=== PATIENT | female | born 1970 | race Caucasian/White ===

== ENCOUNTER 2019-03-08 16:28 | Emergency (ER) | payer BC ==
[2019-03-08 16:50] VITALS: BP 148/91
--- NOTE | 2019-03-08 17:40 | UC ---
Complaint Female HPI - HPI Summary HPI Summary: 48-year-old female presents with complaints of urinary frequency, urgency, nocturia for the past 3 days. States about a week ago she did have vaginal yeast infection symptoms and used Monistat with improvement in her symptoms. She also reports a red, scaly, itchy rash to her bilateral axilla and the need to her bilateral breasts that started 4 days ago. States the rash initially began in the right axilla, spread to the right, and then below her breast. Denies fever, chills, abdominal pain, back or flank pain, nausea, vomiting, dysuria, or hematuria. - History Of Current Complaint Chief Complaint: UCGU Stated Complaint: RASH,URINARY COMPLAINT Time Seen by Provider: 03/08/19 17:30 Hx Obtained From: Patient Pain Intensity: 0 - Allergies/Home Medications Allergies/Adverse Reactions: Allergies Allergy/AdvReac Type Severity Reaction Status Date / Time No Known Allergies Allergy Verified 03/08/19 16:50 Home Medications: Home Medications Albuterol HFA INHALER* [Ventolin HFA Inhaler*] 1 puff INH Q4H PRN 03/08/19 [ History Confirmed 03/08/19] Chromium Amino Acid Chelate [Chromium] 400 mcg PO DAILY 03/08/19 [History Confirmed 03/08/19] Hydrocortisone [Cortizone-10 Intensive He] 1 cre EX DAILY 03/08/19 [History Confirmed 03/08/19] Simvastatin 20 mg PO DAILY 03/08/19 [History Confirmed 03/08/19] PMH/Surg Hx/FS Hx/Imm Hx Endocrine History: Dyslipidemia Cardiovascular History: Hypertension Respiratory History: Asthma - Surgical History Surgical History: Yes Surgery Procedure, Year, and Place: Csection x2 - Family History Known Family History: Positive: Non-Contributory - Social History Occupation: Employed Full-time Lives: With Family Alcohol Use: None Substance Use Type: None Smoking Status (MU): Heavy Every Day Tobacco Smoker Amount Used/How Often: 1/2 ppd Length of Time of Smoking/Using Tobacco: since age 13 Review of Systems All Other Systems Reviewed And Are Negative: Yes Constitutional: Negative: Fever, Chills Skin: Positive: Rash Respiratory: Positive: Negative Cardiovascular: Positive: Negative Gastrointestinal: Negative: Abdominal Pain, Vomiting, Diarrhea, Nausea Genitourinary: Positive: Frequency, Urgency. Negative: Dysuria, Hematuria Musculoskeletal: Positive: Negative Neurological: Positive: Negative Is Patient Immunocompromised?: No Physical Exam - Summary Physical Exam Summary: GENERAL APPEARANCE: Well developed, well nourished, alert and cooperative, and appears to be in no acute distress. CARDIAC: Normal S1 and S2. No S3, S4 or murmurs. Rhythm is regular. There is no peripheral edema, cyanosis or pallor. Extremities are warm and well perfused. Capillary refill is less than 2 seconds. Peripheral pulses intact. LUNGS: Clear to auscultation without rales, rhonchi, wheezing or diminished breath sounds. ABDOMEN: Positive bowel sounds. Soft, nondistended, nontender. No guarding or rebound. No masses or hepatosplenomegally. No CVA tenderness. MUSKULOSKELETAL: ROM intact to all extremities. No joint erythema or tenderness. Normal muscular development. Normal gait. SKIN: Skin normal color, texture and turgor. Erythematous, scaly rash to bilateral axilla and under bilateral breasts. Triage Information Reviewed: Yes Vital Signs: Initial Vital Signs Temp 99.2 F 03/08/19 16:44 Pulse 79 03/08/19 16:44 Resp 18 03/08/19 16:44 BP 148/91 03/08/19 16:44 Pulse Ox 99 03/08/19 16:44 Vital Signs Reviewed: Yes Complaint Female Dx - Course Course Of Treatment: 48-year-old female presents with complaints of urinary frequency, urgency, nocturia for the past 3 days. States about a week ago she did have vaginal yeast infection symptoms and used Monistat with improvement in her symptoms. She also reports a red, scaly, itchy rash to her bilateral axilla and the need to her bilateral breasts that started 4 days ago. States the rash initially began in the right axilla, spread to the right, and then below her breast. Denies fever, chills, abdominal pain, back or flank pain, nausea, vomiting, dysuria, or hematuria. Patient had an erythematous, scaly rash to bilateral axilla and the need her bilateral breasts and otherwise unremarkable exam. Her [id number] urinalysis showed 2+ glucose, 2+ blood, positive nitrite. Urine culture is pending. We'll treat her empirically for a urinary tract infection using Macrobid 1 tablet twice a day 5 days and for a candidal intertrigo with clotrimazole cream to apply to the affected areas twice a day until clear. She is to follow-up with her primary care provider if symptoms do not improve. Anticipatory guidance warning symptoms are reviewed with the patient. Verbalizes understanding and agrees of care. - Differential Dx/Diagnosis Differential Diagnosis/HQI/PQRI: Ureteral Stone, Urinary Tract Infection, Other - yeast infection Provider Diagnosis: UTI (urinary tract infection), Candidal intertrigo Discharge - Sign-Out/Discharge Documenting (check all that apply): Patient Departure All imaging exams completed and their final reports reviewed: No Studies - Discharge Plan Condition: Stable Disposition: HOME Prescriptions: Clotrimazole 1% CREAM* [Clotrimazole 1%*] 1 applic TOPICAL BID #1 tube Nitrofurantoin Monohyd/M-Cryst [Macrobid 100 mg Capsule] 100 mg PO BID #10 cap Patient Education Materials: Urinary Tract Infection in Women (ED), Skin Yeast Infection (ED) Referrals: Lesa Hardin MD [Primary Care Provider] - 3 Days Additional Instructions: Your urine test in the clinic today is suggestive of a urinary tract infection. We will start you on an antibiotic to treat for the infection. We will also send a urine culture today to see what bacteria grow out and make sure the antibiotic you were prescribed is appropriate to treat the infection. It will take 48-72 hours to get these results. We will contact you if there is any change in your treatment plan. Start Macrobid 1 tab twice a day for 5 days. Drink plenty of fluids. To help prevent urinary tract infections: 1) Be sure to wipe from front to back. 2) Urinate immediately after any sexual intercourse. 3) Avoid taking bubble baths. FOR THE RASH: Apply clotrimazole to the affected areas twice a day until clear. Be sure to clean the areas thoroughly and completely pat dry. You can also use a hairdryer on the cool setting to completely dry the skin. Use an absorbent powder such as corn starch to help reduce moisture. Follow up with your primary care provider in 3-5 days if symptoms persist. Seek immediate medical attention in the emergency room if you develop fever greater than 100.5 F, have severe abdominal pain, persistent vomiting, or any worsening of symptoms. - Billing Disposition and Condition Condition: STABLE Disposition: Home
== END 2019-03-08 17:56 | disposition home or self-care (01) ==
LOC: UCCORT 16:28
DX: N39.0 Urinary tract infection, site not specified (principal); B37.2 Candidiasis of skin and nail; I10 Essential (primary) hypertension; F17.210 Nicotine dependence, cigarettes, uncomplicated
CPT/HCPCS: 81003; 87086; 99202; G0463

== ENCOUNTER 2019-08-29 07:33 | Emergency (ER) | payer BC ==
[2019-08-29 08:04] VITALS: BP 118/75
--- NOTE | 2019-08-29 09:27 | ED ---
Respiratory - HPI Summary HPI Summary: 49 yr old with coughing and sinus pressure. Onset of her runny nose and sinus pain was 10 days ago. She feels like her voice sound is off a bit due to sinuses. She has been coughing a lot, and today when she coughs, breaths or moves she gets pain in the chest. She has no pain unless moving, coughing or deep breath. She has no SOB. - History of Current Complaint Chief Complaint: UCRespiratory Stated Complaint: COUGH/CONGESTION Time Seen by Provider: 08/29/19 08:47 Pain Intensity: 0 - Allergy/Home Medications Allergies/Adverse Reactions: Allergies Allergy/AdvReac Type Severity Reaction Status Date / Time No Known Allergies Allergy Verified 08/29/19 07:47 Home Medications: Home Medications Cold And Flu Relief 1 dose PO QPM PRN 08/29/19 [History] [place] Drops 1 dose PO Q4HR PRN 08/29/19 [History] Magnesium Oxide [Magnesium 400 mg] 200 mg PO DAILY 08/29/19 [History Confirmed 08/29/19] Potassium Gluconate [Potassium] 99 mg PO DAILY 08/29/19 [History Confirmed 08/29] metFORMIN* [Glucophage 500 MG TAB *] 500 mg PO BID 08/29/19 [History Confirmed 08/29/19] PMH/Surg Hx/FS Hx/Imm Hx Endocrine/Hematology History: Denies: Hx Diabetes, Hx Thyroid Disease Cardiovascular History: Reports: Hx Hypertension Respiratory History: Denies: Hx Asthma, Hx Chronic Obstructive Pulmonary Disease (COPD) GI History: Denies: Hx Ulcer - Surgical History Surgery Procedure, Year, and Place: Csection x2 Infectious Disease History: No Infectious Disease History: Reports: Hx Hepatitis Denies: Hx Clostridium Difficile, Hx Human Immunodeficiency Virus (HIV), Hx of Known/Suspected MRSA, Hx Shingles, Hx Tuberculosis, Hx Known/Suspected VRE, Hx Known/Suspected VRSA, History Other Infectious Disease, Traveled Outside the [place] in Last 30 Days - Family History Known Family History: Positive: Non-Contributory - Social History Alcohol Use: None Substance Use Type: Reports: None Smoking Status (MU): Heavy Every Day Tobacco Smoker Amount Used/How Often: 1/2 ppd Length of Time of Smoking/Using Tobacco: since age 13 Review of Systems Constitutional: Negative Positive: Nasal Discharge Positive: Cough All Other Systems Reviewed And Are Negative: Yes Physical Exam Triage Information Reviewed: Yes Vital Signs On Initial Exam: Initial Vitals Temp Pulse Resp BP Pulse Ox 99.6 F 82 22 118/75 99 08/29/19 07:59 08/29/19 07:59 08/29/19 07:59 08/29/19 07:59 08/29/19 07:59 Vital Signs Reviewed: Yes Appearance: Positive: Well-Appearing, No Pain Distress Skin: Positive: Warm, Skin Color Reflects Adequate Perfusion Head/Face: Positive: Normal Head/Face Inspection Eyes: Positive: EOMI ENT: Positive: Pharynx normal, Nasal congestion, Nasal drainage, Sinus tenderness Neck: Positive: Nontender Respiratory/Lung Sounds: Positive: Clear to Auscultation, Breath Sounds Present Cardiovascular: Positive: RRR. Negative: Murmur Abdomen Description: Negative: Distended Musculoskeletal: Positive: Strength/ROM Intact Neurological: Positive: Sensory/Motor Intact, Alert, Oriented to Person Place, Time, CN Intact II-III, Normal Gait, Speech Normal Psychiatric: Positive: Normal Diagnostics - Vital Signs Vital Signs Temp Pulse Resp BP Pulse Ox 08/29/19 07:59 99.6 F 82 22 118/75 99 - Laboratory Lab Statement: Any lab studies that have been ordered have been reviewed, and results considered in the medical decision making process. Disposition - Course Course Of Treatment: 49 yr old with lung nodule and sinusitis. DC home on augmentin. I have attempted to contact the primary several times to inform them of the lung nodule and need for follow up but there is no person to talk to at the office despite many different phone options pursued on the answering machine. We will send certified letter to the provider to inform. The patient has been informed of the lung nodule and the need for followup . She states she is driving to her doctor office from here to make an appointment for this now. - Diagnoses Provider Diagnoses: Sinusitis, Lung nodule Discharge ED - Sign-Out/Discharge Documenting (check all that apply): Patient Departure All imaging exams completed and their final reports reviewed: Yes - Discharge Plan Condition: Good Disposition: HOME Prescriptions: Amoxicillin/Clavulanate TAB* [Augmentin TAB 875*] 875 mg PO BID #20 tab Benzonatate CAP* [Tessalon 100 MG CAP*] 100 mg PO TID PRN #14 cap PRN Reason: Cough Patient Education Materials: Sinusitis (ED), Pulmonary Nodules (ED) Referrals: Nieves Belcher NP [Primary Care Provider] - 2 Days Additional Instructions: YOU HAVE A LUNG NODULE. This could be cancerous. I requires follow up with your primary doctor, and a further work up, CT scan of the chest with contrast. DO not delay calling your doctor for follow up. - Billing Disposition and Condition Condition: GOOD Disposition: Home
== END 2019-08-29 09:50 | disposition home or self-care (01) ==
LOC: UCCORT 07:33
DX: J32.9 Chronic sinusitis, unspecified (principal); R05 Cough; I10 Essential (primary) hypertension; R91.1 Solitary pulmonary nodule; F17.210 Nicotine dependence, cigarettes, uncomplicated
CPT/HCPCS: 71046; 99212; G0463